=== PATIENT | male | born 1985 | race American Indian/Alaskan Native ===

== ENCOUNTER 2017-02-12 18:27 | Emergency (ER) | payer SELFPAY ==
[2017-02-12 18:34] VITALS: BMI 33.3
[2017-02-12 18:40] VITALS: RESP 17; TEMP 98
[2017-02-12] MEDS ORDERED: Sodium Chloride 0.9% 1,000 ML IV STA (18:56)
--- NOTE | 2017-02-12 19:07 | ED PDOC ---
Arrival/HPI - General Chief Complaint: Syncope Time Seen by Provider: 02/12/17 18:36 Historian: Patient - History of Present Illness Narrative History of Present Illness (Text): 02/12/17 19:45 Benedicto Garza is a 31 year old male who presents to the emergency department after a syncopal episode prior to arrival. Patient states that he was sitting at his computer when he began to feel stressed and could not stop thinking about something that was bothering him; he then began experiencing palpitations and lightheadedness. In the bathroom, right before passing out, patient felt short of breath and chest tightness. Patient woke up on the floor by EMS. Patient notes of a chronic condition of right-sided neck pain that radiates down his right arm which, according to his sister, causes him to experience jerky movements of the right arm when it bothers him. Patient does admit to this and says has had it for years. Patient denies any recent travels, urinary symptoms, nausea, vomiting, diarrhea, leg pain/swelling, or any other complaint at this time. At this time, he had a headache but no chest pain or shortness of breathing at this time. No focal weakness. PMD: None Time/Duration: Prior to Arrival Symptom Onset: Sudden Symptom Course: Improving Activities at Onset: Rest Context: Home Past Medical History - Provider Review Nursing Documentation Reviewed: Yes - Psychiatric Hx Substance Use: No - Surgical History Other/Comment: "chest tube" Family/Social History - Physician Review Nursing Documentation Reviewed: Yes Family/Social History: No Known Family HX Smoking Status: Never Smoked Hx Alcohol Use: No Hx Substance Use: No Allergies/Home Meds Allergies/Adverse Reactions: Allergies No Known Allergies Allergy (Verified 02/12/17 18:34) Home Medications: Home Meds Medication Instructions Recorded Confirmed No Known Home Med 02/12/17 02/12/17 Review of Systems - Physician Review All systems were reviewed & negative as marked: Yes - Review of Systems Constitutional: absent: Fevers, Night Sweats Eyes: absent: Vision Changes ENT: absent: Hearing Changes Respiratory: SOB Cardiovascular: Chest Pain (Chest Tightness), Palpitations Gastrointestinal: absent: Abdominal Pain Genitourinary Male: absent: Frequency, Hematuria, Urinary Output Changes Musculoskeletal: absent: Back Pain, Neck Pain Skin: absent: Rash, Pruritis Neurological: Other (lightheadedness) Endocrine: absent: Polyuria Hemo/Lymphatic: absent: Easy Bleeding Psychiatric: absent: Depression Physical Exam Vital Signs Reviewed: Yes Vital Signs Temp Pulse Resp BP Pulse Ox 02/12/17 18:28 98.0 F 88 17 156/107 H 100 Temperature: Afebrile Blood Pressure: Hypertensive Pulse: Regular Respiratory Rate: Normal Appearance: Positive for: Well-Appearing, Non-Toxic, Comfortable Pain Distress: None Mental Status: Positive for: Alert and Oriented X 3 - Systems Exam Head: Present: Atraumatic, Normocephalic Pupils: Present: PERRL Extroacular Muscles: Present: EOMI Conjunctiva: Present: Normal Mouth: Present: Moist Mucous Membranes Pharnyx: Present: Normal. No: ERYTHEMA, EXUDATE Neck: Present: Normal Range of Motion Respiratory/Chest: Present: Clear to Auscultation, Good Air Exchange. No: Respiratory Distress, Accessory Muscle Use Cardiovascular: Present: Regular Rate and Rhythm, Normal S1, S2. No: Murmurs Abdomen: Present: Normal Bowel Sounds. No: Tenderness, Distention, Peritoneal Signs Back: Present: Normal Inspection Upper Extremity: Present: Normal Inspection. No: Cyanosis, Edema Lower Extremity: Present: Normal Inspection. No: Edema Neurological: Present: GCS=15, CN II-XII Intact, Speech Normal, Motor Func Grossly Intact Skin: Present: Warm, Dry, Normal Color. No: Rashes Psychiatric: Present: Alert, Oriented x 3, Normal Insight, Normal Concentration Medical Decision Making ED Course and Treatment: 02/12/17 18:45 Impression: 31 year old male complaining of a syncopal episode prior to arrival. Differential Diagnosis include but are not limited to: Vasovagal (likeyl anxiety/stress-induced) vs. neurogenic vs cardiogenic syncope Plan: -- EKG -- Chest X-ray -- Urinalysis -- Labs -- Tylenol and IV Fluids -- Reassess and disposition Prior Visits: Notes and results from previous visits were reviewed. Patient last seen in ED on Progress Notes: EKG: Ordered, reviewed, and independently interpreted the EKG. Rate : 64 BPM Rhythm : NSR Interpretation : Normal intervals. Normal axis. No ST-T wave changes. 02/12/17 19:30 Reviewed radiology, Chest X-ray is NAD. 02/12/17 21:[address]: Creator : Denis Oakes MD FINDINGS: Brain: No intracranial hemorrhage. No mass. No edema. Ventricles: No hydrocephalus. Bones/joints: No acute fracture. Soft tissues: Dermal calcifications. Sinuses: No acute sinusitis. Mastoid air cells: No mastoid effusion. Orbits: Unremarkable as visualized. IMPRESSION: 1. No intracranial hemorrhage. 2. Incidental/non-acute findings are described above. 02/12/17 22:44 Patient with noted history with anxiety attack associated with syncope. Labs with mild leukocytosis but no neutrophilia and otherwise unremarkable. EKG is normal as are vitals and brain CT. He reports feeling much better after tylenol and IVF here in the emergency department. No indication for admission at this time. He needs to follow up in the medical clinic. Regarding his cervical radicular symptoms, which he has had for years, recommend MRI of the c- spine to be arranged by the medical clinic. Ruperto mahoney. - Lab Interpretations Lab Results: 02/12/17 19:20 02/12/17 19:20 Lab Results 02/12/17 19:52: Urine Color Yellow, Urine Appearance Clear, Urine pH 7.5, Ur Specific [place] 1.015, Urine Protein Negative, Urine Glucose (UA) Negative, Urine Ketones Negative, Urine Blood Negative, Urine Nitrate Negative, Urine Bilirubin Negative, Urine Urobilinogen 1.0 H, Ur Leukocyte Esterase Negative 02/12/17 19:20: Sodium 144, Potassium 3.7, Chloride 102, Carbon Dioxide 31, Anion Gap 15, BUN 12, Creatinine 0.7, Est GFR ( Amer) > 60, Est GFR (Non- Af Amer) > 60, Random Glucose 101, Calcium 9.6, Magnesium 2.3 H, Total Bilirubin 0.6, AST 33, ALT 46, Alkaline Phosphatase 86, Lactate Dehydrogenase 469, Total Creatine Kinase 63, Troponin I < 0.01, Total Protein 8.1, Albumin 4.7 , Globulin 3.4, Albumin/Globulin Ratio 1.4, Lipase 186 02/12/17 19:20: PT 10.7, INR 0.99, APTT 28.2, D-Dimer, Quantitative 0.19 02/12/17 19:20: WBC 13.2 H, RBC 5.02, Hgb 15.3, Hct 45.4, MCV 90.4, MCH 30.5, MCHC 33.7, RDW 12.9, Plt Count 259, MPV 9.5, Gran % 60.9, Lymph % (Auto) 31.4, [place] % (Auto) 6.5 H, Eos % (Auto) 1.0 L, Baso % (Auto) 0.2, Gran # 8.01 H, Lymph # 4.1 H, [place] # 0.9 H, Eos # 0.1, Baso # 0.03 - RAD Interpretation Radiology Orders: 02/12/17 18:55 CHEST PORTABLE [RAD] Stat 02/12/17 19:55 Brain [HEAD W/O CONTRAST] [CT] Stat - Medication Orders Current Medication Orders: Discontinued Medications Acetaminophen (Tylenol 325mg Tab) 975 mg PO STAT STA Stop: 02/12/17 18:57 Last Admin: 02/12/17 19:22 Dose: 975 mg Sodium Chloride (Sodium Chloride 0.9%) 1,000 mls @ 999 mls/hr IV .Q1H1M STA Stop: 02/12/17 19:56 Last Admin: 02/12/17 19:23 Dose: 999 mls/hr - Scribe Statement The provider has reviewed the documentation as recorded by the Natalio Rothman Provider Scribe Attestation: All medical record entries made by the Scribe were at my direction and personally dictated by me. I have reviewed the chart and agree that the record accurately reflects my personal performance of the history, physical exam, medical decision making, and the department course for this patient. I have also personally directed, reviewed, and agree with the discharge instructions and disposition. Disposition/Present on Arrival - Present on Arrival Any Indicators Present on Arrival: No History of DVT/PE: No History of Uncontrolled Diabetes: No Urinary Catheter: No History of Decub. Ulcer: No History Surgical Site Infection Following: None - Disposition Have Diagnosis and Disposition been Completed?: Yes Diagnosis: Syncope Disposition: HOME/ ROUTINE Disposition Time: 22:50 Patient Plan: Discharge Condition: GOOD Discharge Instructions (ExitCare): Syncope (ED) Additional Instructions: Stress reduction as indicated. Drink plenty of fluids. Follow up with the medical clinic. Recommend MRI of the cervical spine (to be arranged by medical clinic) to assess your long-standing neck/arm pain. Return to the emergency department if any new concerning symptoms. Referrals: [facility] [place] - Follow up with primary
[2017-02-12 19:28] LABS: ADD MANUAL DIFF? NO
[2017-02-12 19:41] LABS: ALB/GLOB RATIO 1.4 (1.1-1.8); ALKALINE PHOSPHATASE 86 U/L (38-133); ALT/SGPT 46 U/L (7-56); AST/SGOT 33 U/L (15-59); BILIRUBIN,TOTAL 0.6 mg/dL (0.2-1.3); BLOOD UREA NITROGEN 12 mg/dL (7-21); CALCIUM 9.6 mg/dL (8.4-10.5); CARBON DIOXIDE 31 mmol/L (21-33); CHLORIDE 102 mmol/L (98-107); GFR AFRICAN-AMERICAN > 60; GLUCOSE,RANDOM 101 mg/dL (70-110); LIPASE 186 U/L (23-300); MAGNESIUM 2.3 mg/dL (1.7-2.2); POTASSIUM 3.7 mmol/L (3.6-5.0); SODIUM 144 mmol/L (132-148); TOTAL PROTEIN 8.1 g/dL (5.8-8.3)
[2017-02-12 19:44] LABS: HEMATOCRIT 45.4 % (42.0-52.0); MEAN CELL VOLUME 90.4 fL (80.0-105.0); MEAN CORPUSCULAR HEMOGLOBIN 30.5 pg (25.0-35.0); MEAN CORPUSCULAR HGB CONC 33.7 g/dl (31.0-37.0); WHITE BLOOD COUNT 13.2 10^3/ul (4.5-11.0)
[2017-02-12 19:45] LABS: BASO # 0.03 K/mm3 (0.0-2.0); BASO % 0.2 % (0.0-3.0); EOS # 0.1 (0.0-0.7); GRAN # 8.01 (1.4-6.5); GRAN % 60.9 % (50.0-68.0); LYMPH # 4.1 (1.2-3.4); LYMPH % 31.4 % (22.0-35.0); MEAN PLATELET VOLUME 9.5 fl (7.0-11.0); MONO # 0.9 (0.1-0.6); MONO % 6.5 % (1.0-6.0); PLATELET COUNT 259 10^3/uL (120.0-450.0); RED CELL DISTRIBUTION WIDTH 12.9 % (11.5-14.5)
[2017-02-12 19:49] LABS: D DIMER 0.19 mg/L FEU (0-0.50); INR 0.99 (0.93-1.08); PARTIAL THROMBOPLASTIN TIME 28.2 Seconds (23.7-30.8)
[2017-02-12 19:57] LABS: TROPONIN I < 0.01 ng/mL
[2017-02-12 20:15] LABS: PH,URINE 7.5 (4.7-8.0); URINE BILIRUBIN NEGATIVE (NEGATIVE); URINE BLOOD NEGATIVE (NEGATIVE); URINE GLUCOSE (UA) NEGATIVE (NEGATIVE); URINE KETONE NEGATIVE (NEGATIVE); URINE LEUKOCYTE ESTERASE NEGATIVE Leu/uL (NEGATIVE); URINE PROTEIN NEGATIVE mg/dL (<30 mg/dL)
[2017-02-12 20:16] LABS: URINE APPEARANCE CLEAR (CLEAR); URINE COLOR YELLOW (YELLOW)
--- NOTE | 2017-02-12 21:40 | CT ---
EXAM: CT Head Without Intravenous Contrast CLINICAL HISTORY: 31 years old, male; Pain; Headache; Additional info: Fall; Hit head; Loc; Headache TECHNIQUE: Axial computed tomography images of the head/brain without intravenous contrast. This CT exam was performed using one or more of the following dose reduction techniques: automated exposure control, adjustment of the mA and/or kV according to patient size, and/or use of iterative reconstruction technique. COMPARISON: No relevant prior studies available. FINDINGS: Brain: No intracranial hemorrhage. No mass. No edema. Ventricles: No hydrocephalus. Bones/joints: No acute fracture. Soft tissues: Dermal calcifications. Sinuses: No acute sinusitis. Mastoid air cells: No mastoid effusion. Orbits: Unremarkable as visualized. IMPRESSION: 1. No intracranial hemorrhage. 2. Incidental/non-acute findings are described above.
[2017-02-12 23:13] VITALS: BP 142/77; PULSE 82; O2SAT 99
--- NOTE | 2017-02-13 07:51 | RAD ---
HISTORY: syncope COMPARISON: None available. TECHNIQUE: Chest, one view. FINDINGS: Examination limited by habitus. LUNGS: Mild biapical pleural thickening. No focal consolidation. Please note that chest x-ray has limited sensitivity for the detection of pulmonary masses. PLEURA: No significant pleural effusion identified. No definite pneumothorax . CARDIOVASCULAR: The cardiomediastinal silhouette appears within normal limits of size. OSSEOUS STRUCTURES: No acute osseous abnormality identified. VISUALIZED UPPER ABDOMEN: Unremarkable. OTHER FINDINGS: None. IMPRESSION: No focal consolidation, significant pleural effusion, or definite pneumothorax identified. Mild biapical pleural thickening.
--- NOTE | 2017-02-13 10:05 | CARD ---
APPROVED REPORT EKG Measurement Heart [id number] ID [id number] <Conclusion> Normal sinus rhythm Minimal voltage criteria for LVH, may be normal variant Borderline ECG
== END 2017-02-12 23:00 | disposition home or self-care (01) ==
LOC: ED 18:27
DX: R55 Syncope and collapse (principal)
CPT/HCPCS: 70450; 71010; 80053; 81003; 82550; 83615; 83690; 83735; 84484; 85025; 85378; 85610; 85730; 93005; 96360; 99285; J7040

== ENCOUNTER 2017-08-13 21:18 | Emergency (ER) | payer MEDICAID ==
[2017-08-13 21:30] VITALS: BP 158/94; TEMP 98.7; BMI 28.2
[2017-08-13] MEDS ORDERED: Sodium Chloride 0.9% 1,000 ML IV ONE (21:50)
--- NOTE | 2017-08-13 21:56 | ED PDOC ---
Arrival/HPI <Cristóbal Soria - Last Filed: 08/13/17 22:37> - History of Present Illness Time/Duration: > week Symptom Onset: Gradual Symptom Course: Unchanged <Jamia Valles - Last Filed: 08/14/17 00:13> - General Chief Complaint: Male Genitourinary Time Seen by Provider: 08/13/17 21:31 - History of Present Illness Narrative History of Present Illness (Text): 32 year old male with no significant PMHx presents to the ED with complaints of intermittent sharp pain in groin region directly inferior to his scrotum x 2 weeks. Patient presented to the ED on 07/27/17 with RLQ abdominal pain with associated nausea and vomiting. CT Abd/Pelvis w/ IV contrast identified bladder calculi and contrast enhancing gallbladder wall and pericholicystic fluid. Patient was treated with Zofran, Toradol, Morphine, and Flomax in the ED. He was sent home with antibiotics and flomax and told to take Motrin for pain. Today, patient reports to the ED with groin pain with associated intermittent difficulty urinating and dysuria. Patient denies any fevers, chills, sob, chest pain, abdominal pain, back pain, suprapubic tenderness, or hematuria. ROS (+) Groin Pain/discomfort, dysuria, difficulty urinating (-) Fevers, chills, headache, chest pain, sob, abdominal pain, n/v/d, constipation, hematuria, back pain, suprapubic tenderness PMHx: Denies PSHx: Chest tube in 2007 Allergies: NKDA Social Hx: PPD for 10 years (quit and then restarted again about a year ago. No smokes about 3 cigarettes a day), social drinker, denies illicit drug use Fam Hx: Denies Meds: None (Jamia Valles) Past Medical History - Provider Review Nursing Documentation Reviewed: Yes - Psychiatric Hx Substance Use: No - Surgical History Other/Comment: "chest tube" - Anesthesia Hx Anesthesia: Yes Hx Anesthesia Reactions: No Hx Malignant Hyperthermia: No <Jamia Valles - Last Filed: 08/14/17 00:13> Family/Social History - Physician Review Nursing Documentation Reviewed: Yes Family/Social History: No Known Family HX Smoking Status: Current Some Days Smoker Hx Alcohol Use: No Hx Substance Use: No <Jamia Valles - Last Filed: 08/14/17 00:13> Allergies/Home Meds <EstellaCristóbal - Last Filed: 08/13/17 22:37> <UzielgricelJamia - Last Filed: 08/14/17 00:13> Allergies/Adverse Reactions: Allergies No Known Allergies Allergy (Verified 02/12/17 18:34) Review of Systems - Physician Review All systems were reviewed & negative as marked: Yes (As per HPI) - Review of Systems Constitutional: Normal Respiratory: Normal Cardiovascular: Normal Gastrointestinal: Normal <Jamia Valles - Last Filed: 08/14/17 00:13> Physical Exam Temperature: Afebrile Blood Pressure: Hypertensive Pulse: Regular Respiratory Rate: Normal Appearance: Positive for: Well-Appearing, Non-Toxic, Comfortable Pain Distress: Mild Mental Status: Positive for: Alert and Oriented X 3 - Systems Exam Head: Present: Atraumatic, Normocephalic Extroacular Muscles: Present: EOMI Conjunctiva: Present: Normal Mouth: Present: Moist Mucous Membranes Respiratory/Chest: Present: Clear to Auscultation. No: Respiratory Distress, Accessory Muscle Use, Wheezes Cardiovascular: Present: Regular Rate and Rhythm, Normal S1, S2. No: Murmurs, Tachycardic Abdomen: Present: Normal Bowel Sounds. No: Tenderness, Distention, Rebound, Guarding Genitourinary Male: Present: Normal External Genitalia. No: Testicle Tenderness , Penile Swelling, Erythema, Testicle Swelling Back: No: CVA Tenderness Upper Extremity: Present: Normal Inspection Lower Extremity: Present: Normal Inspection Neurological: Present: GCS=15, Speech Normal Skin: Present: Warm, Normal Color Lymphatic: No: Cervical Adenopathy, Inguinal Adenopathy Psychiatric: Present: Alert, Oriented x 3, Normal Insight, Normal Affect, Normal Mood <ScottJamia gaona - Last Filed: 08/14/17 00:13> Vital Signs Temp Pulse Resp BP Pulse Ox 08/13/17 21:29 98.7 F 77 16 158/94 H 99 Medical Decision Making <Cristóbal Soria - Last Filed: 08/13/17 22:37> <ReenaJamia - Last Filed: 08/14/17 00:13> ED Course and Treatment: Patient Seen With Resident: In agreement with resident note which contains more details about the patient. Patient was seen and evaluated with resident. Came up with plan and treatment together. A 32 year old male with groin pain. Additional HPI as noted by resident. No acute findings on physical exam. Ordered CT abd/pelvis, labs, Urinalysis and bladder scan. Will give patient IV fluids and Toradol. (Cristóbal Soria) Groin Pain likely 2/2 to Bladder Calculi --NS @ 100mls/hr --Toradol 30 IVP one --Bladder Scan --CT Abd/Pelvis w/o contrast. --CBC/CMP --Urine/Urine Cultures CT Abd/Pelvis w/o contrast IMPRESSION: 1. No definite CT evidence of urolithiasis. 2. Incidental/non-acute findings are described above. Dictated and Authenticated by: Denis Oakes MD 08/13/2017 11:41 PM Eastern Time ([place] & [place]) UA: showed few WBC Amb Orders: Bactrim Q12H for 7 days, Motrin for Pain (Jamia Valles) - Lab Interpretations Lab Results: 08/13/17 22:00 08/13/17 22:30 Lab Results 08/13/17 22:30: Sodium 144, Potassium 3.7, Chloride 106, Carbon Dioxide 30, Anion Gap 12, BUN 12, Creatinine 0.8, Est GFR ( Amer) > 60, Est GFR (Non- Af Amer) > 60, Random Glucose 98, Calcium 9.1, Total Bilirubin 0.8, AST 20, ALT 33, Alkaline Phosphatase 71, Total Protein 7.3, Albumin 4.3, Globulin 3.0, Albumin/Globulin Ratio 1.4 08/13/17 22:00: Urine Color Yellow, Urine Appearance Clear, Urine pH 8.5, Ur Specific [place] 1.020, Urine Protein Trace H, Urine Glucose (UA) Negative, Urine Ketones Negative, Urine Blood Negative, Urine Nitrate Negative, Urine Bilirubin Negative, Urine Urobilinogen 1.0 H, Ur Leukocyte Esterase Negative, Urine RBC 0 - 2, Urine WBC 0 - 2, Urine Bacteria Few 08/13/17 22:00: WBC 11.4 H D, RBC 5.08, Hgb 15.7, Hct 46.3, MCV 91.1, MCH 30.9, MCHC 33.9, RDW 12.7, Plt Count 299, MPV 10.4, Gran % 65.3, Lymph % (Auto) 26.5, [place] % (Auto) 6.4 H, Eos % (Auto) 1.6, Baso % (Auto) 0.2, Gran # 7.43 H, Lymph # 3.0, [place] # 0.7 H, Eos # 0.2, Baso # 0.02 - RAD Interpretation Radiology Orders: 08/13/17 21:55 ABD & PELVIS W/O PO OR IV CONT [CT] Stat - Medication Orders Current Medication Orders: Sodium Chloride (Sodium Chloride 0.9%) 1,000 mls @ 100 mls/hr IV .Q10H ONE Stop: 08/14/17 07:49 Last Admin: 08/13/17 22:08 Dose: 100 mls/hr eMAR Start Stop Document 08/13/17 22:08 CNR (Rec: 08/13/17 22:08 CNR [id number]) Intravenous Solution Start Date 08/13/17 Start Time 22:08 Trimethoprim/Sulfamethoxazole (Bactrim Ds Tab) 1 tab PO ONCE ONE PRN Reason: Protocol Stop: 08/14/17 00:00 Discontinued Medications Ketorolac Tromethamine (Toradol) 30 mg IVP STAT STA Stop: 08/13/17 21:51 Last Admin: 08/13/17 22:08 Dose: 30 mg MAR Pain Assessment Document 08/13/17 22:08 CNR (Rec: 08/13/17 22:08 CNR [id number]) Pain Reassessment Is this a pain reassessment? Yes IVP Administration Document 08/13/17 22:08 CNR (Rec: 08/13/17 22:08 CNR [id number]) Charges for Administration # of IVP Administrations 1 - Scribe Statement The provider has reviewed the documentation as recorded by the Scribe <Cristóbal Soria - Last Filed: 08/13/17 22:37> <Jamia Valles - Last Filed: 08/14/17 00:13> - Scribe Statement Manuela Montalvo Provider Scribe Attestation: All medical record entries made by the Scribe were at my direction and personally dictated by me. I have reviewed the chart and agree that the record accurately reflects my personal performance of the history, physical exam, medical decision making, and the department course for this patient. I have also personally directed, reviewed, and agree with the discharge instructions and disposition. (Cristóbal Soria) Disposition/Present on Arrival <Cristóbal Soria - Last Filed: 08/13/17 22:37> - Present on Arrival Any Indicators Present on Arrival: No History of DVT/PE: No History of Uncontrolled Diabetes: No Urinary Catheter: No History of Decub. Ulcer: No History Surgical Site Infection Following: None - Disposition Have Diagnosis and Disposition been Completed?: Yes Disposition Time: 00:13 <Jamia Valles - Last Filed: 08/14/17 00:13> - Disposition Diagnosis: Prostatitis Disposition: HOME/ ROUTINE Patient Problems: Current Active Problems Problem Status Onset Prostatitis Acute Condition: STABLE Discharge Instructions (ExitCare): Prostatitis (ED) Additional Instructions: Follow up with Primary Care provider following completion of antibiotics Follow up with Urologist for evaluation of prostatitis If your symptoms worsen, please return to the ED. You may continue to take over the counter Motrin for pain as instructed. Referrals: PCP,NO [Primary Care Provider] - Follow up with primary Forms: [place] ([place])
[2017-08-13 22:19] LABS: BASO # 0.02 K/mm3 (0.0-2.0); BASO % 0.2 % (0.0-3.0); EOS # 0.2 (0.0-0.7); EOS % 1.6 % (1.5-5.0); GRAN # 7.43 (1.4-6.5); GRAN % 65.3 % (50.0-68.0); HEMATOCRIT 46.3 % (42.0-52.0); LYMPH % 26.5 % (22.0-35.0); MEAN CELL VOLUME 91.1 fl (80.0-105.0); MEAN CORPUSCULAR HEMOGLOBIN 30.9 pg (25.0-35.0); MEAN CORPUSCULAR HGB CONC 33.9 g/dl (31.0-37.0); MEAN PLATELET VOLUME 10.4 fl (7.0-11.0); MONO # 0.7 (0.1-0.6); MONO % 6.4 % (1.0-6.0); PH,URINE 8.5 (4.7-8.0); RED CELL DISTRIBUTION WIDTH 12.7 % (11.5-14.5); URINE BILIRUBIN NEGATIVE (NEGATIVE); URINE BLOOD NEGATIVE (NEGATIVE); URINE GLUCOSE (UA) NEGATIVE (NEGATIVE); URINE KETONE NEGATIVE (NEGATIVE); URINE LEUKOCYTE ESTERASE NEGATIVE Leu/uL (NEGATIVE); URINE PROTEIN TRACE mg/dL (<30 mg/dL); WHITE BLOOD COUNT 11.4 10^3/ul (4.5-11.0)
[2017-08-13 22:23] LABS: URINE APPEARANCE CLEAR (CLEAR); URINE COLOR YELLOW (YELLOW)
[2017-08-13 22:39] LABS: URINE RBC 0 - 2 /hpf (0-2); URINE WBC 0 - 2 /hpf (0-6)
[2017-08-13 22:40] LABS: URINE BACTERIA FEW (NEG)
[2017-08-13 22:48] LABS: ALB/GLOB RATIO 1.4 (1.1-1.8); ALKALINE PHOSPHATASE 71 U/L (38-126); ALT/SGPT 33 U/L (7-56); AST/SGOT 20 U/L (17-59); BILIRUBIN,TOTAL 0.8 mg/dL (0.2-1.3); BLOOD UREA NITROGEN 12 mg/dL (7-21); CALCIUM 9.1 mg/dL (8.4-10.5); CARBON DIOXIDE 30 mmol/L (21-33); CHLORIDE 106 mmol/L (98-107); GFR AFRICAN-AMERICAN > 60; GLUCOSE,RANDOM 98 mg/dL (70-110); POTASSIUM 3.7 mmol/L (3.6-5.0); SODIUM 144 mmol/L (132-148); TOTAL PROTEIN 7.3 g/dL (5.8-8.3)
--- NOTE | 2017-08-13 23:41 | CT ---
EXAM: CT Abdomen and Pelvis Without Intravenous Contrast CLINICAL HISTORY: 32 years old, male; Pain; Abdominal pain; Acute; Additional info: HX of bladder calculi. R/O calculi. TECHNIQUE: Axial computed tomography images of the abdomen and pelvis without intravenous contrast. All CT scans at this facility use one or more dose reduction techniques, viz.: automated exposure control; ma/kV adjustment per patient size (including targeted exams where dose is matched to indication; i.e. head); or iterative reconstruction technique. MIP reconstructed images were created and reviewed. Coronal and sagittal reformatted images were created and reviewed. COMPARISON: CT - ABD PELVIS PO IV CONTRAST 2017-07-27 09:53 FINDINGS: Lower thorax: No acute findings. ABDOMEN: Liver: Too small to characterize lesion. Gallbladder and bile ducts: No calcified stones. No ductal dilation. Pancreas: Unremarkable. No ductal dilation. Spleen: No splenomegaly. Adrenals: No mass. Kidneys and ureters: No renal calculi. No hydronephrosis. Stomach and bowel: No definite mural thickening. No obstruction. Appendix: Normal caliber. No inflammation. PELVIS: Bladder: Unremarkable. No stones. Reproductive: Unremarkable as visualized. ABDOMEN and PELVIS: Intraperitoneal space: No significant fluid collection. No free air. Bones/joints: No acute fracture. Soft tissues: Unremarkable. Vasculature: Unremarkable. No aneurysm. Lymph nodes: No pathologically enlarged lymph nodes. IMPRESSION: 1. No definite CT evidence of urolithiasis. 2. Incidental/non-acute findings are described above.
[2017-08-13] MEDS ORDERED: Tmp-Smz 800 mg-160 mg DS Tab PO ONE (23:59)
[2017-08-14 00:29] VITALS: PULSE 72; RESP 18; O2SAT 98
== END 2017-08-14 00:25 | disposition home or self-care (01) ==
LOC: ED 21:18
DX: N41.9 Inflammatory disease of prostate, unspecified (principal)
CPT/HCPCS: 74176; 80053; 81001; 85025; 87086; 96374; 99284; J1885; J7040